=== PATIENT | female | born 1965 ===

== ENCOUNTER 2020-10-16 16:04 | Outpatient (REF) | payer SELFPAY ==
[2020-10-18 13:09] LABS: COVID-19 RT-PCR UVMMC Result Negative (Negative)
== END 2020-10-16 16:05 | disposition home or self-care (01) ==
LOC: NCHCN 16:04
PROVIDERS: Visit Provider Nurse Practitioner Family
DX: J06.9 Acute upper respiratory infection, unspecified (principal); Z20.822 Contact with and (suspected) exposure to COVID-19
CPT/HCPCS: U0003